=== PATIENT | female | born 1990 | race Asian ===

== ENCOUNTER 2017-05-13 09:38 | Emergency (ER) | payer SELFPAY ==
[~2017-05-13] VITALS: Ht 154.9 cm; Wt 77.0 kg
[2017-05-13 10:56] LABS: CLARITY URINE CLEAR (CLEAR); COLOR URINE YELLOW (YELLOW); GLUCOSE URINE NEGATIVE (NEGATIVE); KETONES URINE NEGATIVE (NEGATIVE); LEUKOCYTE ESTERASE URINE NEGATIVE (NEGATIVE); NITRITE URINE NEGATIVE (NEGATIVE); OCCULT BLOOD URINE 3+ (NEGATIVE); PROTEIN URINE NEGATIVE (NEGATIVE); SPECIFIC GRAVITY URINE 1.032 (1.005-1.030)
[2017-05-13] MEDS ORDERED: SODIUM CHLORIDE 0.9% 10ML VIAL ONE (11:06)
[2017-05-13] MEDS ORDERED: IOHEXOL-350 100 ML BOTTLE ONE (11:06)
[2017-05-13 11:21] LABS: BASOPHILS % 0.8 % (0.0-2.0); EOSINOPHILS % 2.9 % (0.0-5.0); HEMATOCRIT. 39.1 % (36.0-48.0); HEMOGLOBIN. 13.2 g/dL (12.0-16.0); LYMPHOCYTES % 24.1 % (20.0-50.0); MEAN CORPUSCULAR HEMOGLOBIN 29.5 pg (28.0-32.0); MEAN CORPUSCULAR VOLUME 87.3 fL (81.0-99.0); MEAN PLATELET VOLUME 6.9 fl (7.4-10.4); MONOCYTES % 7.8 % (2.0-8.0); NEUTROPHILS % 64.4 % (40.0-76.0); PLATELET 321 x1000/uL (130-400); RED BLOOD CELL COUNT 4.48 mill/uL (4.2-5.4); RED CELL DISTRIBUTION WIDTH 12.7 % (11.6-14.6)
[2017-05-13 11:26] LABS: CHLORIDE 104 mEq/L (98-107)
[2017-05-13 11:27] LABS: PROTHROMBIN TIME 10.3 sec
[2017-05-13 11:32] LABS: CARBON DIOXIDE 29 mEq/L (21-32)
[2017-05-13 15:06] VITALS: BP 110/70
== END 2017-05-13 15:44 | disposition home or self-care (01) ==
LOC: ER 10:28
DX: R51 Headache (principal)
CPT/HCPCS: 36415; 70496; 80048; 81001; 85025; 85610; 99285; A4216; J7040; Q9967; Z7610